=== PATIENT | male | born 1955 | race Caucasian/White ===

== ENCOUNTER 2017-12-08 12:28 | Emergency (ER) | payer OTHER ==
[~2017-12-08] VITALS: Ht 177.8 cm; Wt 141.6 kg
[~2017-12-08 12:28] MED LIST: ALBU8HFA PO; ASPI-611 PO; ATOR10TA PO; FAMO20TA8 PO; HYDR-565 PO; MAGN500C16 PO; OMEG10006 PO; UBID30CA11 PO; VITA-268 PO
[2017-12-08 14:50] LABS: BASOPHILS % (AUTO) 0.4 % (0-1); EOSINOPHILS % (AUTO) 0.3 % (0-6); HEMATOCRIT 43.1 % (42.0-52.0); HEMOGLOBIN 14.6 g/dl (14.0-17.9); LYMPHOCYTES # (AUTO) 3.6 X10'3 (1.1-4.8); LYMPHOCYTES % (AUTO) 31.2 % (21-51); MEAN CORPUSCULAR HEMOGLOBIN 30.4 PG (27.0-31.0); MEAN CORPUSCULAR HGB CONC 33.9 % (33.0-36.5); MEAN CORPUSCULAR VOLUME 89.7 FL (78-98); MEAN PLATELET VOLUME 10.7 FL (7.4-10.4); MONOCYTES # (AUTO) 0.8 X10'3 (0-0.9); MONOCYTES % (AUTO) 6.9 % (2-12); NEUTROPHILS % (AUTO) 61.2 % (42-75); PLATELET COUNT 153 X10'3 (140-440); RED BLOOD COUNT 4.81 X10'6 (4.70-6.10); RED CELL DISTRIBUTION WIDTH 15.4 % (11.5-14.5); WHITE BLOOD COUNT 11.5 X10'3 (4.5-11.0)
[2017-12-08 15:01] LABS: PARTIAL THROMBOPLASTIN TIME 37 SECONDS (22-32); PROTHROMBIN TIME 10.1 SECONDS (9.0-12.0)
[2017-12-08 15:08] LABS: ALANINE AMINOTRANSFERASE 36 U/L (12-78); ALBUMIN 3.4 G/DL (3.4-5.0); ALBUMIN/GLOBULIN RATIO 0.8 (1.1-1.5); ALKALINE PHOSPHATASE 71 IU/L (46-116); ANION GAP 10 (8-16); ASPARTATE AMINO TRANSFERASE 24 U/L (10-37); BILIRUBIN,TOTAL 0.8 MG/DL (0.1-1.0); BLOOD UREA NITROGEN 14 MG/DL (7-18); BUN/CREATININE RATIO 16.1 (5.4-32.0); CALCIUM 8.9 MG/DL (8.5-10.1); CHLORIDE 104 MMOL/L (99-107); CREATININE 0.87 MG/DL (0.60-1.10); GLUCOSE 87 MG/DL (70-104); MAGNESIUM 2.1 MG/DL (1.5-2.4); POTASSIUM 3.9 MMOL/L (3.5-5.1); SODIUM 142 MMOL/L (135-145); TOTAL CARBON DIOXIDE 27.9 MMOL/L (24-32); TOTAL PROTEIN 7.5 G/DL (6.4-8.2); eGFR 88 ML/MIN
[2017-12-08 15:10] LABS: LARGE PLATELETS FEW; PLATELET ESTIMATE NORMAL
[2017-12-08] MEDS ORDERED: predniSONE 20 mg tablet PO ONE (15:20)
[2017-12-08 15:49] LABS: CLARITY,URINE CLEAR (Clear); COLOR,URINE YELLOW (Yellow); GLUCOSE, URINE NEGATIVE (Neg); KETONES,URINE NEGATIVE (Neg); LEUKOCYTE ESTERASE ,URINE NEGATIVE (Neg); NITRITES, URINE NEGATIVE (Neg); OCCULT BLOOD,URINE NEGATIVE (Neg); PH,URINE 6.5 (4.8-8.0); PROTEIN,URINE NEGATIVE (Neg); UROBILINOGEN,URINE 0.2 E.U/dL (0.2-1.0)
[2017-12-08 15:50] LABS: UA COLLECTION TYPE CLN CATCH MIDSTREAM
[2017-12-08 15:59] VITALS: BP 125/89
== END 2017-12-08 16:02 | disposition home or self-care (01) ==
LOC: ER 12:29
DX: J18.9 Pneumonia, unspecified organism (principal); I25.10 Atherosclerotic heart disease of native coronary artery without angina pectoris; J45.909 Unspecified asthma, uncomplicated; I10 Essential (primary) hypertension; E78.00 Pure hypercholesterolemia, unspecified; K21.9 Gastro-esophageal reflux disease without esophagitis; I25.2 Old myocardial infarction; I49.9 Cardiac arrhythmia, unspecified; Z98.61 Coronary angioplasty status; Z98.890 Other specified postprocedural states; Z88.8 Allergy status to other drugs, medicaments and biological substances; Z79.82 Long term (current) use of aspirin; Z79.899 Other long term (current) drug therapy
CPT/HCPCS: 36415; 71046; 80053; 81003; 83605; 83735; 84145; 85025; 85610; 85730; 87040; 93005; 99285; J7512

== ENCOUNTER 2018-06-27 05:24 | Inpatient (IN) | payer MEDICARE, OTHER ==
[2018-06-19 16:01] LABS: BASOPHILS % (AUTO) 0.4 % (0-1); EOSINOPHILS # (AUTO) 0.2 X10'3 (0-0.9); EOSINOPHILS % (AUTO) 2.8 % (0-6); LYMPHOCYTES # (AUTO) 2.9 X10'3 (1.1-4.8); LYMPHOCYTES % (AUTO) 35.3 % (21-51); MEAN CORPUSCULAR HEMOGLOBIN 30.4 PG (27.0-31.0); MEAN CORPUSCULAR HGB CONC 32.9 % (33.0-36.5); MEAN CORPUSCULAR VOLUME 92.5 FL (78-98); MEAN PLATELET VOLUME 11.7 FL (7.4-10.4); MONOCYTES # (AUTO) 0.5 X10'3 (0-0.9); MONOCYTES % (AUTO) 6.6 % (2-12); NEUTROPHILS # (AUTO) 4.5 X10'3 (1.8-7.7); NEUTROPHILS % (AUTO) 54.9 % (42-75); PRE OP HEMATOCRIT 47.5 % (42.0-52.0); PRE OP HEMOGLOBIN 15.6 g/dL (14.0-17.9); PRE OP PLATELET COUNT 154 X10'3 (140-440); RED BLOOD COUNT 5.14 X10'6 (4.70-6.10); RED CELL DISTRIBUTION WIDTH 14.4 % (11.5-14.5)
[2018-06-19 16:08] LABS: ALBUMIN 3.5 G/DL (3.4-5.0); ALBUMIN/GLOBULIN RATIO 0.9 (1.1-1.5); ALKALINE PHOSPHATASE 77 IU/L (46-116); BLOOD UREA NITROGEN 14 MG/DL (7-18); BUN/CREATININE RATIO 17.3 (5.4-32.0); CHLORIDE 106 MMOL/L (99-107); CREATININE 0.81 MG/DL (0.60-1.10); PRE OP ALT 30 U/L (30-65); PRE OP ANION GAP 7 (8-16); PRE OP AST 18 U/L (10-37); PRE OP BILIRUB, TOTAL 1.2 MG/DL (0.0-1.0); PRE OP GLUCOSE 88 MG/DL (70-104); PRE OP POTASSIUM 4.2 MMOL/L (3.4-5.1); PRE OP SODIUM 142 MMOL/L (135-145); TOTAL CARBON DIOXIDE 28.9 MMOL/L (24-32); TOTAL PROTEIN 7.2 G/DL (6.4-8.2); eGFR > 90 ML/MIN
[2018-06-19 16:15] LABS: PRE OP PROTIME 10.2 SECONDS (9.0-12.0)
[2018-06-19 16:17] LABS: CLARITY,URINE CLEAR (Clear); COLOR,URINE YELLOW (Yellow); GLUCOSE, URINE NEGATIVE (Neg); KETONES,URINE NEGATIVE (Neg); LEUKOCYTE ESTERASE ,URINE NEGATIVE (Neg); NITRITES, URINE NEGATIVE (Neg); OCCULT BLOOD,URINE NEGATIVE (Neg); PROTEIN,URINE NEGATIVE (Neg); UROBILINOGEN,URINE 0.2 E.U/dL (0.2-1.0)
[2018-06-19 16:26] LABS: UA COLLECTION TYPE VOIDED
[2018-06-27] VITALS (18 sets, daily range): BP systolic 98–152; BP diastolic 42–95
[~2018-06-27] VITALS: Ht 179.1 cm; Wt 138.1 kg
[~2018-06-27 05:24] MED LIST changes: -ASPI-611 PO; -FAMO20TA8 PO; -HYDR-565 PO; +ringers solution, lacted 1,000 ML IV SCH
[2018-06-27] MEDS ORDERED: metoclopramide 5 mg/ml inj IV ONE (05:30)
[2018-06-27] MEDS ORDERED: gabapentin 300mg capsule PO ONE (05:30)
[2018-06-27] MEDS ORDERED: albuterol 2.5 MG/3 ML nebule NEB ONE (05:30)
[2018-06-27] MEDS ORDERED: ceFAZolin inj. 3,000 MG in normal saline 100ml IV soln 100 ML IV ONE (05:30)
[2018-06-27] MEDS ORDERED: famotidine 20mg tablet PO ONE (05:30)
[2018-06-27] MEDS ORDERED: oxyCODONE SR 10mg (sust. release) tab -2 tabs (20mg) PO ONE (05:30)
[2018-06-27] MEDS ORDERED: vancomycin inj 1,500 MG in normal saline 300ml IV soln IV ONE (05:30)
[2018-06-27] MEDS ORDERED: tranexamic acid inj. 1,000 MG in normal saline 100ml IV soln 90 ML IV ONE (05:30)
[2018-06-27] MEDS ORDERED: acetaminophen 325mg tablet PO ONE (05:30)
[2018-06-27] MEDS ORDERED: LIDOcaine 1% (10mg/ml) 2ml vial ONE (05:43)
[2018-06-27] MEDS ORDERED: vancomycin 1,000mg inj ONE (06:26)
[2018-06-27] MEDS ORDERED: ketorolac trometh. 30mg/ml inj. ONE (06:55)
[2018-06-27] MEDS ORDERED: tetracaine 1% (10mg/ml) pres. free inj. ONE (07:19)
[2018-06-27] MEDS ORDERED: midazolam 2 mg/2 ml injection ONE ×2 (07:21→07:22)
[2018-06-27] MEDS ORDERED: fentaNYL/PF 50MCG/1 ML 2ML syringe ONE (07:21)
[2018-06-27] MEDS ORDERED: propofol inj 20 ML IV ONE (07:22)
[2018-06-27] MEDS ORDERED: sevoflurane 250ml liquid IH ONE (07:23)
[2018-06-27] MEDS ORDERED: BUPIVAcaine/dex-water/PF 7.5 mg/ml 2ml ampul ONE (07:26)
[2018-06-27] MEDS ORDERED: ROPIVAcaine inj 200 MG, epiNEPHrine inj 0.6 MG, morphine 10mg/ml inj. 5 MG in normal sa... IU ONE (07:30)
[2018-06-27] MEDS ORDERED: Thrombin (Bovine) 5,000 unit vial TP ONE (08:49)
[2018-06-27] MEDS ORDERED: ringers solution, lacted 1,000 ML IV SCH (08:57)
[2018-06-27] MEDS ORDERED: morphine 4 MG/ML inj SYRINge IV PRN ×2 (09:00)
[2018-06-27] MEDS ORDERED: meperidine/PF 25mg/ml syringe IV PRN ×3 (09:00)
[2018-06-27] MEDS ORDERED: proCHLORperazine 10 MG/2 ml inj IV PRN (09:00)
[2018-06-27] MEDS ORDERED: ondansetron/PF 4mg/2ml inj IV PRN (09:00)
[2018-06-27] MEDS ORDERED: diphenhydrAMINE 25mg capsule PO PRN ×2 (10:35)
[2018-06-27] MEDS ORDERED: acetaminophen 325mg tablet PO PRN (10:35)
[2018-06-27] MEDS ORDERED: HYDROmorphone 1 mg/ml syringe IV PRN ×2 (10:35)
[2018-06-27] MEDS ORDERED: oxyCODONE IR 5mg (immed. release) tablet PO PRN (10:35)
[2018-06-27] MEDS ORDERED: bisacodyl 10mg suppository rectal RC PRN (10:35)
[2018-06-27] MEDS ORDERED: magnesium hydroxide 30ml (MOM) UD suspension PO PRN (10:35)
[2018-06-27] MEDS ORDERED: ePHEDrine 50MG/ML INJ. ONE (10:36)
[2018-06-27] MEDS ORDERED: albuterol 2.5 MG/3 ML nebule NEB PRN (11:40)
[2018-06-27] MEDS ORDERED: tranexamic acid inj. 1,000 MG in normal saline 100ml IV soln 100 ML IV ONE (13:35)
[2018-06-27] MEDS: oxyCODONE IR 5mg (immed. release) tablet PO PRN ×2 (14:36→23:56)
[2018-06-27] MEDS: gabapentin 300mg capsule PO SCH ×2 (15:50→20:29)
[2018-06-27] MEDS: acetaminophen 325mg tablet PO SCH ×2 (15:50→20:29)
[2018-06-27] MEDS: ceFAZolin 1GM/D5W- ADD-VANTAGE 50 ML IV SCH (16:16)
[2018-06-27] MEDS: potassium cl 20mEq in 1/2 NS 1,000 ML IV SCH ×3 (16:17→19:23)
[2018-06-27] MEDS: ondansetron/PF 4mg/2ml inj IV PRN (18:25)
[2018-06-27] MEDS ORDERED: vancomycin/NS 1 GM ADD-VANTAGE 250 ML IV SCH (20:00)
[2018-06-27] MEDS: sennosides 8.6mg tablet PO SCH (20:30)
[2018-06-28] VITALS (7 sets, daily range): BP systolic 100–133; BP diastolic 53–77
[2018-06-28] MEDS: ceFAZolin 1GM/D5W- ADD-VANTAGE 50 ML IV SCH (00:20)
[2018-06-28] MEDS: acetaminophen 325mg tablet PO SCH ×4 (02:00→19:31)
[2018-06-28] MEDS: potassium cl 20mEq in 1/2 NS 1,000 ML IV SCH ×3 (05:04→20:13)
[2018-06-28] MEDS: oxyCODONE IR 5mg (immed. release) tablet PO PRN ×4 (05:10→20:50)
[2018-06-28] MEDS ORDERED: benzocaine/menthol oral lozeng 1 EACH BOX MM PRN (05:50)
[2018-06-28 06:26] LABS: BASOPHILS % (AUTO) 0.4 % (0-1); EOSINOPHILS # (AUTO) 0.1 X10'3 (0-0.9); EOSINOPHILS % (AUTO) 1.6 % (0-6); HEMATOCRIT 35.6 % (42.0-52.0); LYMPHOCYTES # (AUTO) 2.2 X10'3 (1.1-4.8); LYMPHOCYTES % (AUTO) 27.7 % (21-51); MEAN CORPUSCULAR HEMOGLOBIN 30.8 PG (27.0-31.0); MEAN CORPUSCULAR HGB CONC 33.6 % (33.0-36.5); MEAN CORPUSCULAR VOLUME 91.7 FL (78-98); MONOCYTES # (AUTO) 1.1 X10'3 (0-0.9); NEUTROPHILS # (AUTO) 4.5 X10'3 (1.8-7.7); NEUTROPHILS % (AUTO) 56.3 % (42-75); PLATELET COUNT 118 X10'3 (140-440); RED BLOOD COUNT 3.89 X10'6 (4.70-6.10); RED CELL DISTRIBUTION WIDTH 14.2 % (11.5-14.5); WHITE BLOOD COUNT 8.1 X10'3 (4.5-11.0)
[2018-06-28 06:31] LABS: ANION GAP 8 (8-16); CHLORIDE 103 MMOL/L (99-107); POTASSIUM 4.1 MMOL/L (3.5-5.1); SODIUM 138 MMOL/L (135-145); TOTAL CARBON DIOXIDE 27.2 MMOL/L (24-32)
[2018-06-28] MEDS ORDERED: non-formulary drug (Ubidecarenone (Coq-10) 30 MG) PO SCH (08:00)
[2018-06-28] MEDS: atorvastatin 10mg tablet PO SCH (08:14)
[2018-06-28] MEDS: enoxaparin 40mg/0.4ml syringe SQ SCH (08:14)
[2018-06-28] MEDS: magnesium oxide 400mg tablet PO SCH (08:14)
[2018-06-28] MEDS: gabapentin 300mg capsule PO SCH ×3 (08:15→20:13)
[2018-06-28] MEDS: vitamin B comp w/Vit. C tab 1 TAB TABLET PO SCH (08:16)
[2018-06-28 10:17] LABS: LARGE PLATELETS FEW; PLATELET ESTIMATE DECREASED
[2018-06-28] MEDS: celeCOXIB 100mg capsule PO SCH (19:31)
[2018-06-28] MEDS: sennosides 8.6mg tablet PO SCH (21:00)
[2018-06-29] MEDS: acetaminophen 325mg tablet PO SCH ×2 (01:55→07:14)
[2018-06-29 06:00] VITALS: BP 117/66
[2018-06-29 07:01] LABS: BASOPHILS % (AUTO) 0.3 % (0-1); EOSINOPHILS # (AUTO) 0.2 X10'3 (0-0.9); HEMATOCRIT 35.1 % (42.0-52.0); HEMOGLOBIN 11.8 g/dl (14.0-17.9); LYMPHOCYTES # (AUTO) 1.8 X10'3 (1.1-4.8); LYMPHOCYTES % (AUTO) 15.9 % (21-51); MEAN CORPUSCULAR HGB CONC 33.7 % (33.0-36.5); MEAN CORPUSCULAR VOLUME 91.9 FL (78-98); MONOCYTES # (AUTO) 1.1 X10'3 (0-0.9); MONOCYTES % (AUTO) 9.4 % (2-12); NEUTROPHILS # (AUTO) 8.3 X10'3 (1.8-7.7); NEUTROPHILS % (AUTO) 72.4 % (42-75); PLATELET COUNT 103 X10'3 (140-440); RED BLOOD COUNT 3.82 X10'6 (4.70-6.10); RED CELL DISTRIBUTION WIDTH 13.8 % (11.5-14.5); WHITE BLOOD COUNT 11.4 X10'3 (4.5-11.0)
[2018-06-29] MEDS: gabapentin 300mg capsule PO SCH ×3 (07:08→20:42)
[2018-06-29] MEDS: atorvastatin 10mg tablet PO SCH (07:08)
[2018-06-29] MEDS: celeCOXIB 100mg capsule PO SCH ×2 (07:08→19:46)
[2018-06-29] MEDS: vitamin B comp w/Vit. C tab 1 TAB TABLET PO SCH (07:08)
[2018-06-29] MEDS: enoxaparin 40mg/0.4ml syringe SQ SCH (07:08)
[2018-06-29] MEDS: magnesium oxide 400mg tablet PO SCH (07:08)
[2018-06-29 10:00] VITALS: BP 115/51
[2018-06-29] MEDS ORDERED: acetaminophen 325mg tablet PO PRN (10:35)
[2018-06-29] MEDS ORDERED: acetaminophen w/codeine (30MG) #3 tablet PO PRN (16:25)
[2018-06-29 17:00] VITALS: BP 112/59
[2018-06-29] MEDS: acetaminophen w/codeine (30MG) #3 tablet PO PRN (18:37)
[2018-06-29] MEDS: sennosides 8.6mg tablet PO SCH (21:00)
[2018-06-29 22:00] VITALS: BP 119/55
[2018-06-30] MEDS: ondansetron/PF 4mg/2ml inj IV PRN (02:42)
[2018-06-30 03:51] LABS: BASOPHILS % (AUTO) 0.4 % (0-1); EOSINOPHILS # (AUTO) 0.3 X10'3 (0-0.9); HEMATOCRIT 33.4 % (42.0-52.0); HEMOGLOBIN 11.2 g/dl (14.0-17.9); LYMPHOCYTES # (AUTO) 3.1 X10'3 (1.1-4.8); LYMPHOCYTES % (AUTO) 27.9 % (21-51); MEAN CORPUSCULAR HEMOGLOBIN 31.1 PG (27.0-31.0); MEAN CORPUSCULAR HGB CONC 33.5 % (33.0-36.5); MEAN CORPUSCULAR VOLUME 92.9 FL (78-98); MEAN PLATELET VOLUME 10.7 FL (7.4-10.4); MONOCYTES # (AUTO) 1.1 X10'3 (0-0.9); MONOCYTES % (AUTO) 9.6 % (2-12); NEUTROPHILS # (AUTO) 6.6 X10'3 (1.8-7.7); NEUTROPHILS % (AUTO) 59.1 % (42-75); PLATELET COUNT 115 X10'3 (140-440); RED CELL DISTRIBUTION WIDTH 13.9 % (11.5-14.5); WHITE BLOOD COUNT 11.1 X10'3 (4.5-11.0)
[2018-06-30 06:00] VITALS: BP 110/64
[2018-06-30 06:48] LABS: LARGE PLATELETS FEW; PLATELET ESTIMATE DECREASED
[2018-06-30] MEDS: celeCOXIB 100mg capsule PO SCH (08:00)
[2018-06-30] MEDS: gabapentin 300mg capsule PO SCH (08:17)
[2018-06-30] MEDS: magnesium oxide 400mg tablet PO SCH (08:17)
[2018-06-30] MEDS: vitamin B comp w/Vit. C tab 1 TAB TABLET PO SCH (08:17)
[2018-06-30] MEDS: atorvastatin 10mg tablet PO SCH (08:17)
[2018-06-30] MEDS: acetaminophen w/codeine (30MG) #3 tablet PO PRN (08:17)
[2018-06-30] MEDS: enoxaparin 40mg/0.4ml syringe SQ SCH (08:18)
[2018-06-30 10:00] VITALS: BP 112/53
== END 2018-06-30 11:00 | DRG 470 ==
LOC: PAS IN 05:24 → EDSTATUS 08:30 → ORTHO 4S 11:35
PROVIDERS: ADMIT Orthopaedic Surgery; ATTEND Orthopaedic Surgery
PROC: 0SRB06A Replacement of Left Hip Joint with Oxidized Zirconium on Polyethylene Synthetic Substitute, Uncemented, Open Approach (ICD-10-PCS; principal; 2018-06-27 07:23)
PROC: 5A09357 Assistance with Respiratory Ventilation, Less than 24 Consecutive Hours, Continuous Positive Airway Pressure (ICD-10-PCS; 2018-06-28)
DX: M16.12 Unilateral primary osteoarthritis, left hip (principal); D62 Acute posthemorrhagic anemia; Z68.41 Body mass index [BMI] 40.0-44.9, adult; E78.5 Hyperlipidemia, unspecified; E66.01 Morbid (severe) obesity due to excess calories; Z60.2 Problems related to living alone; G47.30 Sleep apnea, unspecified; I25.10 Atherosclerotic heart disease of native coronary artery without angina pectoris; J45.909 Unspecified asthma, uncomplicated; K21.9 Gastro-esophageal reflux disease without esophagitis; Z95.5 Presence of coronary angioplasty implant and graft; Z79.899 Other long term (current) drug therapy
CPT/HCPCS: 36415; 71046; 72170; 80051; 80053; 81003; 85025; 85610; 85730; 86885; 86900; 86901; 87070; 94640; 94760; 97110; 97116; 97161; 97530; A7000; C1758; C1776; G0378; J0171; J0690; J1650; J1885; J2250; J2270; J2405; J2704; J2765; J2795; J3010; J3370; J3490; J7030; J7120

== ENCOUNTER 2018-07-09 20:57 | Emergency (ER) | payer MEDICARE, OTHER ==
[~2018-07-09] VITALS: Ht 177.8 cm; Wt 145.4 kg
[~2018-07-09 20:57] MED LIST changes: -ringers solution, lacted 1,000 ML IV SCH
[2018-07-09 21:03] VITALS: BP 147/68
[2018-07-09] MEDS ORDERED: HYDROcodone/acetaminophen 5mg/325mg tablet PO ONE (22:25)
== END 2018-07-09 23:07 | disposition home or self-care (01) ==
LOC: ER 20:58
DX: G89.18 Other acute postprocedural pain (principal); M25.552 Pain in left hip; I25.10 Atherosclerotic heart disease of native coronary artery without angina pectoris; E78.00 Pure hypercholesterolemia, unspecified; I10 Essential (primary) hypertension; I25.2 Old myocardial infarction; J45.909 Unspecified asthma, uncomplicated; K21.9 Gastro-esophageal reflux disease without esophagitis; M19.90 Unspecified osteoarthritis, unspecified site; Z98.61 Coronary angioplasty status; Z98.890 Other specified postprocedural states; Z88.1 Allergy status to other antibiotic agents; Z88.8 Allergy status to other drugs, medicaments and biological substances; Z79.899 Other long term (current) drug therapy
CPT/HCPCS: 73502; 99284

== ENCOUNTER 2019-08-01 09:47 | Day surgery (SDC) | payer MEDICARE, OTHER ==
[~2019-08-01] VITALS: Ht 177.8 cm; Wt 136.4 kg
[2019-08-01 10:00] VITALS: BP 153/76
[2019-08-01] MEDS ORDERED: ASPI-611 PO (10:20)
[2019-08-01] MEDS ORDERED: fentaNYL/PF 50MCG/1 ML 2ML syringe ONE (10:24)
[2019-08-01] MEDS ORDERED: MIDAZolam 5mg/5ml vial ONE (10:24)
[2019-08-01 11:09] VITALS: BP 126/62
[2019-08-01 11:19] VITALS: BP 131/61
[2019-08-01 11:29] VITALS: BP 145/68
[2019-08-01 11:39] VITALS: BP 121/64
== END 2019-08-01 12:00 | disposition home or self-care (01) ==
LOC: GI LAB 09:47
PROVIDERS: ATTEND Internal Medicine Gastroenterology
DX: Z12.11 Encounter for screening for malignant neoplasm of colon (principal); K57.30 Diverticulosis of large intestine without perforation or abscess without bleeding; Z86.010 Personal history of colon polyps; K64.8 Other hemorrhoids
CPT/HCPCS: G0105; G0500; J2250; J3010; J7040; 45378; 99152; A4620

== ENCOUNTER 2019-12-03 04:34 | Emergency (ER) | payer MEDICARE, OTHER ==
[~2019-12-03] VITALS: Ht 177.8 cm; Wt 61.0 kg
[~2019-12-03 04:34] MED LIST changes: +ASPI-611 PO
[2019-12-03] MEDS ORDERED: ACET-3067 PO (05:06)
[2019-12-03] MEDS ORDERED: CYCL-1 PO (05:06)
[2019-12-03 05:21] VITALS: BP 180/92
== END 2019-12-03 05:24 | disposition home or self-care (01) ==
LOC: ER 04:34
DX: M54.5 Low back pain (principal); M54.2 Cervicalgia; I25.10 Atherosclerotic heart disease of native coronary artery without angina pectoris; E78.00 Pure hypercholesterolemia, unspecified; I10 Essential (primary) hypertension; I25.2 Old myocardial infarction; J45.909 Unspecified asthma, uncomplicated; G47.30 Sleep apnea, unspecified; M19.90 Unspecified osteoarthritis, unspecified site; G89.29 Other chronic pain; Z98.61 Coronary angioplasty status; Z98.890 Other specified postprocedural states; Z88.8 Allergy status to other drugs, medicaments and biological substances; Z79.82 Long term (current) use of aspirin; Z79.899 Other long term (current) drug therapy
CPT/HCPCS: 99281; 99283

== ENCOUNTER 2020-01-10 05:13 | Emergency (ER) | payer MEDICARE, OTHER ==
[~2020-01-10] VITALS: Ht 177.8 cm; Wt 150.0 kg
[~2020-01-10 05:13] MED LIST changes: +CYCL-1 PO
[2020-01-10] MEDS ORDERED: triamcinolone acetonide 40mg/ml inj IM ONE (05:35)
[2020-01-10 05:46] VITALS: BP 162/95
== END 2020-01-10 05:47 | disposition home or self-care (01) ==
LOC: ER 05:13
DX: L50.9 Urticaria, unspecified (principal); M19.90 Unspecified osteoarthritis, unspecified site; I25.10 Atherosclerotic heart disease of native coronary artery without angina pectoris; E78.00 Pure hypercholesterolemia, unspecified; I10 Essential (primary) hypertension; I25.2 Old myocardial infarction; J45.909 Unspecified asthma, uncomplicated; G47.30 Sleep apnea, unspecified; K21.9 Gastro-esophageal reflux disease without esophagitis; G89.29 Other chronic pain; Z98.61 Coronary angioplasty status; Z98.890 Other specified postprocedural states; Z88.8 Allergy status to other drugs, medicaments and biological substances; Z79.82 Long term (current) use of aspirin; Z79.899 Other long term (current) drug therapy
CPT/HCPCS: 96372; 99283; J3301

== ENCOUNTER 2020-04-29 08:14 | Outpatient (CLI) | payer MEDICARE, OTHER ==
[~2020-04-29] VITALS: Ht 177.8 cm; Wt 136.1 kg
[2020-04-29 08:41] LABS: ABG BASE EXCESS 0.7 mmol/L (-2.0-2.0); ABG HCO3 25.8 mmol/L (22.0-26.0); ABG OXYGEN SATURATION 96.7 % (94-97); ABG PO2 (T) 85.1 mmHg (75.0-100.0); ALLEN'S TEST POSITIVE; FCOHb 0.3 % (0.0-3.9); FMetHb 0.3 % (0.0-1.5); FO2Hb 96.1 % (94-97); TOTAL HEMOGLOBIN 15.8 G/dl (14.0-18.0)
[2020-04-29] MEDS ORDERED: albuterol 2.5 MG/3 ML nebule NEB ONE (09:05)
== END 2020-04-29 23:59 | disposition home or self-care (01) ==
LOC: RT 08:14
PROVIDERS: ATTEND Internal Medicine Pulmonary Disease
DX: J45.998 Other asthma (principal); R06.02 Shortness of breath
CPT/HCPCS: 36600; 82803; 85018; 94060; 94727; 94729; 94760

== ENCOUNTER 2020-06-08 17:24 | Emergency (ER) | payer MEDICARE, OTHER ==
[~2020-06-08] VITALS: Ht 177.8 cm; Wt 150.0 kg
[2020-06-08 17:35] VITALS: BP 189/80
--- NOTE | 2020-06-08 20:28 | NUR ---
sanchez in assessing patient with scribe
--- NOTE | 2020-06-08 20:35 | NUR ---
patient states having chronic neck pain that is followed by a pcp, appropriate ella level would be 4 due to resources to be used
[2020-06-08] MEDS ORDERED: acetaminophen w/codeine (30MG) #3 tablet PO ONE (20:50)
[2020-06-08] MEDS ORDERED: gabapentin 300mg capsule PO ONE (20:50)
[2020-06-08] MEDS ORDERED: GABA300C PO (20:53)
== END 2020-06-08 21:18 | disposition home or self-care (01) ==
LOC: ER 17:25
DX: S16.1XXD Strain of muscle, fascia and tendon at neck level, subsequent encounter (principal); H93.13 Tinnitus, bilateral; I10 Essential (primary) hypertension; E78.00 Pure hypercholesterolemia, unspecified; J45.909 Unspecified asthma, uncomplicated; K21.9 Gastro-esophageal reflux disease without esophagitis; G89.29 Other chronic pain; M54.9 Dorsalgia, unspecified; I25.10 Atherosclerotic heart disease of native coronary artery without angina pectoris; I21.9 Acute myocardial infarction, unspecified; Z88.1 Allergy status to other antibiotic agents; Z79.899 Other long term (current) drug therapy; Z79.82 Long term (current) use of aspirin; X58.XXXD Exposure to other specified factors, subsequent encounter
CPT/HCPCS: 99284

== ENCOUNTER 2020-06-24 13:40 | Outpatient (CLI) | payer MEDICARE, OTHER ==
[~2020-06-24 13:40] MED LIST changes: +GABA300C PO
[2020-06-24 15:15] LABS: BASOPHILS # (AUTO) 0.1 X10'3 (0-0.2); BASOPHILS % (AUTO) 0.6 % (0-1); EOSINOPHILS # (AUTO) 0.2 X10'3 (0-0.9); EOSINOPHILS % (AUTO) 2.6 % (0-6); LYMPHOCYTES # (AUTO) 3.2 X10'3 (1.1-4.8); LYMPHOCYTES % (AUTO) 38.5 % (21-51); MEAN CORPUSCULAR HEMOGLOBIN 31.6 PG (27.0-31.0); MEAN CORPUSCULAR HGB CONC 33.4 g/dL (33.0-36.5); MEAN CORPUSCULAR VOLUME 94.5 FL (78-98); MEAN PLATELET VOLUME 10.4 FL (7.4-10.4); MONOCYTES # (AUTO) 0.6 X10'3 (0-0.9); MONOCYTES % (AUTO) 7.4 % (2-12); NEUTROPHILS # (AUTO) 4.2 X10'3 (1.8-7.7); NEUTROPHILS % (AUTO) 50.9 % (42-75); PRE OP HEMATOCRIT 47.4 % (42.0-52.0); PRE OP HEMOGLOBIN 15.8 g/dL (14.0-17.9); PRE OP PLATELET COUNT 146 X10'3 (140-440); RED BLOOD COUNT 5.02 X10'6 (4.70-6.10)
[2020-06-24 15:33] LABS: ALBUMIN 3.7 G/DL (3.4-5.0); ALKALINE PHOSPHATASE 75 IU/L (46-116); BLOOD UREA NITROGEN 12 MG/DL (7-18); BUN/CREATININE RATIO 14.3 (5.4-32.0); CALCIUM 9.2 MG/DL (8.5-10.1); CHLORIDE 108 MMOL/L (99-107); CREATININE 0.84 MG/DL (0.60-1.10); PRE OP ALT 26 U/L (30-65); PRE OP ANION GAP 6 (8-16); PRE OP AST 17 U/L (10-37); PRE OP BILIRUB, TOTAL 1.2 MG/DL (0.0-1.0); PRE OP GLUCOSE 96 MG/DL (70-104); PRE OP POTASSIUM 4.4 MMOL/L (3.4-5.1); PRE OP SODIUM 143 MMOL/L (135-145); TOTAL CARBON DIOXIDE 29.1 MMOL/L (24-32); TOTAL PROTEIN 7.5 G/DL (6.4-8.2); eGFR > 90 ML/MIN
[2020-06-24] MEDS ORDERED: LEVO50TA8 PO (15:56)
[2020-06-24] MEDS ORDERED: BIMA2.5D LEFTEYE (15:56)
[2020-06-24] MEDS ORDERED: MULT-1085 PO (15:56)
[2020-06-24] MEDS ORDERED: OMEP40CA13 PO (15:56)
== END 2020-06-24 23:56 | disposition home or self-care (01) ==
LOC: PRE-OP 13:40 → EDSTATUS 07-01 07:30
PROVIDERS: ATTEND Orthopaedic Surgery
DX: Z01.812 Encounter for preprocedural laboratory examination (principal); Z20.828 Contact with and (suspected) exposure to other viral communicable diseases; Z79.899 Other long term (current) drug therapy
CPT/HCPCS: 36415; 80053; 84443; 85025; 87081; 87635; 93005

== ENCOUNTER 2020-10-21 10:41 | Day surgery (SDC) | payer MEDICARE, OTHER ==
[2020-10-14 14:36] LABS: BASOPHILS # (AUTO) 0.1 X10'3 (0-0.2); BASOPHILS % (AUTO) 0.7 % (0-1); EOSINOPHILS # (AUTO) 0.2 X10'3 (0-0.9); LYMPHOCYTES # (AUTO) 2.9 X10'3 (1.1-4.8); LYMPHOCYTES % (AUTO) 38.8 % (21-51); MEAN CORPUSCULAR HEMOGLOBIN 31.1 PG (27.0-31.0); MEAN CORPUSCULAR HGB CONC 33.1 g/dL (33.0-36.5); MEAN CORPUSCULAR VOLUME 93.7 FL (78-98); MEAN PLATELET VOLUME 10.9 FL (7.4-10.4); MONOCYTES # (AUTO) 0.6 X10'3 (0-0.9); MONOCYTES % (AUTO) 7.5 % (2-12); NEUTROPHILS # (AUTO) 3.7 X10'3 (1.8-7.7); PRE OP HEMATOCRIT 45.7 % (42.0-52.0); PRE OP HEMOGLOBIN 15.1 g/dL (14.0-17.9); PRE OP PLATELET COUNT 144 X10'3 (140-440); RED BLOOD COUNT 4.88 X10'6 (4.70-6.10); RED CELL DISTRIBUTION WIDTH 13.8 % (11.5-14.5)
[2020-10-14 14:41] LABS: ALBUMIN 3.4 G/DL (3.4-5.0); ALBUMIN/GLOBULIN RATIO 0.9 (1.1-1.5); ALKALINE PHOSPHATASE 77 IU/L (46-116); BLOOD UREA NITROGEN 15 MG/DL (7-18); CALCIUM 8.8 MG/DL (8.5-10.1); CHLORIDE 106 MMOL/L (99-107); CREATININE 0.75 MG/DL (0.60-1.10); PRE OP ALT 26 U/L (30-65); PRE OP ANION GAP 7 (8-16); PRE OP AST 15 U/L (10-37); PRE OP BILIRUB, TOTAL 1.1 MG/DL (0.0-1.0); PRE OP GLUCOSE 96 MG/DL (70-104); PRE OP POTASSIUM 4.4 MMOL/L (3.4-5.1); PRE OP SODIUM 142 MMOL/L (135-145); TOTAL CARBON DIOXIDE 29.4 MMOL/L (24-32); eGFR > 90 ML/MIN
[2020-10-21] VITALS (11 sets, daily range): BP systolic 121–152; BP diastolic 82–102
[~2020-10-21] VITALS: Ht 177.8 cm; Wt 145.2 kg
[~2020-10-21 10:41] MED LIST changes: +CHRO1TAB8 PO; -CYCL-1 PO; -GABA300C PO; +GARLIC; +LEVO50TA8 PO; +MULT-1085 PO; -OMEG10006 PO; +TUMERIC; -VITA-268 PO; +albuterol 2.5 MG/3 ML nebule NEB ONE; +ceFAZolin inj. 3,000 MG in normal saline 100ml IV soln 100 ML IV ONE; +ceFAZolin/D5W- 1GM premix 50 ML IV ONE; +cefazolin/dext.iso 2gm/100ml 100 ML IV ONE; +famotidine 20mg tablet PO ONE; +ringers solution, lacted 1,000 ML IV SCH
[2020-10-21] MEDS ORDERED: fentaNYL/PF 50MCG/1 ML 2ML syringe ONE (15:03)
[2020-10-21] MEDS ORDERED: midazolam 1 mg/ML 2ml injection ONE ×2 (15:04→15:22)
[2020-10-21] MEDS ORDERED: BUPIVAcaine/PF 2.5 mg/ml (0.25%) 30ml vial ONE ×2 (15:37→15:40)
[2020-10-21] MEDS ORDERED: BUPIVAcaine 0.25% w/Epi /PF 30ml vial IJ ONE (15:44)
--- NOTE | 2020-10-21 16:47 | NUR ---
Received from OR via [facility], accompanied by Anesthesiologist DR SHAHID and report given by Anesthesiologist. PT AWAKE, DENIES PAIN, LEFT HAND/FOREARM W/GIL WRAP COVERING INCISION/DRSG CDI. FINGERS PWD, PNEUMATIC PRESS HAND 1-2 SECONDS. Addendum: 10/21/20 at 1706 by Brenda Oliva RN Amended: Links added.
[2020-10-21] MEDS ORDERED: morphine 4 MG/ML inj SYRINge IV PRN (17:35)
[2020-10-21] MEDS ORDERED: meperidine/PF 25mg/ml syringe IV PRN ×3 (17:35)
[2020-10-21] MEDS ORDERED: morphine 2 MG/ML inj. syringe IV PRN (17:35)
[2020-10-21] MEDS ORDERED: ringers solution, lacted 1,000 ML IV SCH (17:35)
[2020-10-21] MEDS ORDERED: proCHLORperazine 10 MG/2 ml inj IV PRN (17:35)
[2020-10-21] MEDS ORDERED: ondansetron/PF 4mg/2ml inj IV PRN (17:35)
--- NOTE | 2020-10-21 17:37 | NUR ---
PT UP AND ABLE TO AMBULATE SAFELY, D/C INSTRUCTIONS GIVEN AND GONE OVER W/PT WHO VERBALIZED UNDERSTANDING. PT D/CD TO HOME VIA W/C TO PRIVATE VEHICLE W/O INCIDENT. Addendum: 10/21/20 at 1757 by Brenda Oliva RN Amended: Links added.
== END 2020-10-21 17:37 | disposition home or self-care (01) ==
LOC: PAS 10:41
PROVIDERS: ATTEND Orthopaedic Surgery
DX: M65.4 Radial styloid tenosynovitis [de Quervain] (principal); J45.909 Unspecified asthma, uncomplicated; G47.30 Sleep apnea, unspecified; E03.9 Hypothyroidism, unspecified; K21.9 Gastro-esophageal reflux disease without esophagitis; M19.90 Unspecified osteoarthritis, unspecified site; F32.9 Major depressive disorder, single episode, unspecified; I73.9 Peripheral vascular disease, unspecified; Z88.8 Allergy status to other drugs, medicaments and biological substances; Z98.890 Other specified postprocedural states; Z88.1 Allergy status to other antibiotic agents; Z95.5 Presence of coronary angioplasty implant and graft; Z79.899 Other long term (current) drug therapy
CPT/HCPCS: 25000; 80053; 85025; J0690; J2250; J3010; J3490; A4215; A4615; A6449; A7000; J7120

== ENCOUNTER → 2021-01-15 | Outpatient (CLI) | payer MEDICARE, OTHER ==
[~2021-01-15] MED LIST changes: -albuterol 2.5 MG/3 ML nebule NEB ONE; -ceFAZolin inj. 3,000 MG in normal saline 100ml IV soln 100 ML IV ONE; -ceFAZolin/D5W- 1GM premix 50 ML IV ONE; -cefazolin/dext.iso 2gm/100ml 100 ML IV ONE; -famotidine 20mg tablet PO ONE; +iohexol 300mg/ml 100ml inj. ONE; -ringers solution, lacted 1,000 ML IV SCH
== END | disposition home or self-care (01) ==
LOC: 64 CT 10:16
PROVIDERS: ATTEND Family Medicine
DX: N28.1 Cyst of kidney, acquired (principal)
CPT/HCPCS: 74177; Q9967

== ENCOUNTER 2021-02-06 03:47 | Emergency (ER) | payer MEDICARE, OTHER ==
[~2021-02-06] VITALS: Ht 177.8 cm; Wt 143.2 kg
[~2021-02-06 03:47] MED LIST changes: -iohexol 300mg/ml 100ml inj. ONE
[2021-02-06 04:56] LABS: ALANINE AMINOTRANSFERASE 22 U/L (12-78); ALBUMIN 3.5 G/DL (3.4-5.0); ALKALINE PHOSPHATASE 59 IU/L (46-116); ANION GAP 6 (8-16); ASPARTATE AMINO TRANSFERASE 14 U/L (10-37); BLOOD UREA NITROGEN 12 MG/DL (7-18); BUN/CREATININE RATIO 12.4 (5.4-32.0); CALCIUM 8.4 MG/DL (8.5-10.1); CHLORIDE 106 MMOL/L (99-107); CREATININE 0.97 MG/DL (0.60-1.10); GLUCOSE 99 MG/DL (70-104); LIPASE 95 U/L (73-393); SODIUM 142 MMOL/L (135-145); TOTAL CARBON DIOXIDE 30.4 MMOL/L (24-32); eGFR 77 ML/MIN
[2021-02-06 05:03] LABS: BASOPHILS # (AUTO) 0.1 X10'3 (0-0.2); BASOPHILS % (AUTO) 0.7 % (0-1); EOSINOPHILS # (AUTO) 0.3 X10'3 (0-0.9); EOSINOPHILS % (AUTO) 2.5 % (0-6); HEMATOCRIT 44.4 % (42.0-52.0); LYMPHOCYTES # (AUTO) 4.3 X10'3 (1.1-4.8); LYMPHOCYTES % (AUTO) 43.1 % (21-51); MEAN CORPUSCULAR HEMOGLOBIN 31.5 PG (27.0-31.0); MEAN CORPUSCULAR HGB CONC 33.7 g/dL (33.0-36.5); MEAN CORPUSCULAR VOLUME 93.6 FL (78-98); MEAN PLATELET VOLUME 10.7 FL (7.4-10.4); MONOCYTES % (AUTO) 10.1 % (2-12); NEUTROPHILS # (AUTO) 4.3 X10'3 (1.8-7.7); NEUTROPHILS % (AUTO) 43.6 % (42-75); PLATELET COUNT 144 X10'3 (140-440); RED BLOOD COUNT 4.74 X10'6 (4.70-6.10); RED CELL DISTRIBUTION WIDTH 13.9 % (11.5-14.5); WHITE BLOOD COUNT 9.9 X10'3 (4.5-11.0)
[2021-02-06] MEDS: diatr meglu/diatrizoate 30ml oral sol.-(3 dose) bottle PO SCH ×3 (05:15→06:10)
[2021-02-06] MEDS ORDERED: normal saline 1000ML IV soln IVB ONE (05:15)
--- NOTE | 2021-02-06 05:40 | NUR ---
PATIENT STATES THAT HE HAD A CT SCAN LAST WEEK AND HAD TO DRINK GASTROGRAFIN AND HAVE IV CONTRAST. DR. Llanes INFORMED AND CHANGED ORDERS. IV INFUSING WELL. AWAITING LAB RESULTS.
[2021-02-06 06:29] VITALS: BP 144/82
== END 2021-02-06 07:25 | disposition home or self-care (01) ==
LOC: ER 03:48
DX: K59.00 Constipation, unspecified (principal); I11.9 Hypertensive heart disease without heart failure; J45.909 Unspecified asthma, uncomplicated; K21.9 Gastro-esophageal reflux disease without esophagitis
CPT/HCPCS: 74019; 80053; 83690; 85025; 96360; 99284; J7030; Q9963

== ENCOUNTER 2021-09-08 03:30 | Emergency (ER) | payer MEDICARE, OTHER ==
[~2021-09-08] VITALS: Ht 177.8 cm; Wt 136.4 kg
[2021-09-08] MEDS ORDERED: naproxen 500mg tablet PO ONE (03:50)
[2021-09-08 05:52] VITALS: BP 143/97
== END 2021-09-08 06:05 | disposition home or self-care (01) ==
LOC: ER 03:31
DX: S52.572A Other intraarticular fracture of lower end of left radius, initial encounter for closed fracture (principal); M25.562 Pain in left knee; M25.552 Pain in left hip; M54.50 Low back pain, unspecified; M25.532 Pain in left wrist; I25.10 Atherosclerotic heart disease of native coronary artery without angina pectoris; E78.00 Pure hypercholesterolemia, unspecified; I10 Essential (primary) hypertension; I25.2 Old myocardial infarction; J45.909 Unspecified asthma, uncomplicated; K21.9 Gastro-esophageal reflux disease without esophagitis; M19.90 Unspecified osteoarthritis, unspecified site; G89.29 Other chronic pain; Z98.890 Other specified postprocedural states; Z60.2 Problems related to living alone; Z88.1 Allergy status to other antibiotic agents; Z88.8 Allergy status to other drugs, medicaments and biological substances; Z79.82 Long term (current) use of aspirin; Z79.899 Other long term (current) drug therapy; W01.0XXA Fall on same level from slipping, tripping and stumbling without subsequent striking against object, initial encounter; Y93.89 Activity, other specified; Y92.89 Other specified places as the place of occurrence of the external cause; Y99.8 Other external cause status
CPT/HCPCS: 29125; 72100; 72170; 73110; 99284

== ENCOUNTER 2022-02-16 08:08 | Inpatient (IN) | payer MEDICARE, OTHER ==
[2022-02-14 11:08] LABS: BASOPHILS % (AUTO) 0.5 % (0-1); EOSINOPHILS # (AUTO) 0.2 X10'3 (0-0.9); EOSINOPHILS % (AUTO) 2.3 % (0-6); LYMPHOCYTES # (AUTO) 3.4 X10'3 (1.1-4.8); LYMPHOCYTES % (AUTO) 39.4 % (21-51); MEAN CORPUSCULAR HEMOGLOBIN 30.7 PG (27.0-31.0); MEAN PLATELET VOLUME 10.3 FL (7.4-10.4); MONOCYTES # (AUTO) 0.7 X10'3 (0-0.9); MONOCYTES % (AUTO) 7.9 % (2-12); NEUTROPHILS # (AUTO) 4.4 X10'3 (1.8-7.7); NEUTROPHILS % (AUTO) 49.9 % (42-75); PRE OP HEMATOCRIT 43.9 % (42.0-52.0); PRE OP HEMOGLOBIN 14.5 g/dL (14.0-17.9); PRE OP PLATELET COUNT 163 X10'3 (140-440); RED BLOOD COUNT 4.72 X10'6 (4.70-6.10); RED CELL DISTRIBUTION WIDTH 14.1 % (11.5-14.5)
[2022-02-14 11:24] LABS: ALBUMIN 3.5 G/DL (3.4-5.0); ALBUMIN/GLOBULIN RATIO 0.9 (1.1-1.5); ALKALINE PHOSPHATASE 70 IU/L (46-116); BLOOD UREA NITROGEN 18 MG/DL (7-18); BUN/CREATININE RATIO 20.7 (5.4-32.0); CALCIUM 8.5 MG/DL (8.5-10.1); CHLORIDE 105 MMOL/L (99-107); CREATININE 0.87 MG/DL (0.60-1.10); PRE OP ALT 32 U/L (30-65); PRE OP ANION GAP 7 (8-16); PRE OP AST 30 U/L (10-37); PRE OP GLUCOSE 102 MG/DL (70-104); PRE OP POTASSIUM 4.1 MMOL/L (3.4-5.1); PRE OP SODIUM 140 MMOL/L (135-145); TOTAL CARBON DIOXIDE 27.7 MMOL/L (24-32); TOTAL PROTEIN 7.3 G/DL (6.4-8.2); eGFR 87 ML/MIN
[~2022-02-16] VITALS: Ht 179.1 cm; Wt 147.0 kg
[2022-02-16] VITALS (18 sets, daily range): BP systolic 104–141; BP diastolic 55–90
[~2022-02-16 08:08] MED LIST changes: -ATOR10TA PO; +ATOR20TA66 PO; +BRIM5DRO16 LEFTEYE; +CHOL400T57 PO; -CHRO1TAB8 PO; +FEXO180T94 PO; -GARLIC; +LOSA1TAB36 PO; -MAGN500C16 PO; +MAGN500C4 PO; -MULT-1085 PO; +NEPA3DRO LEFTEYE; +OMEG10006 PO; +VITA-129 PO; +[UNRECOGNIZED DRUG - OTHER] PO; +albuterol 2.5 MG/3 ML nebule NEB ONE; +ceFAZolin inj. 3,000 MG in normal saline 100ml IV soln 100 ML IV ONE; +famotidine 20mg tablet PO ONE; +ringers solution, lacted 1,000 ML IV SCH; +tranexamic acid inj. 1,000 MG in 0.7% saline 100 ML PMX IV ONE; +vancomycin 1,500 MG in NS 300ml IV soln IV ONE
--- NOTE | 2022-02-16 09:00 | NUR ---
TOTAL JOINT CHARTING: COMPLETED 5 DAYS OF DECOLONIZATION PROCESS (HIBICLENS SHOWERS AND NASAL OINTMENT). DID NOT WATCH THE VIDEO-STATES HAS BILAT THR AND DIDN'T FEEL HE NEEDED TO WATCH IT. [facility]SM'S WNL. PALPABLE +1 LEFT DORSAL PEDALIS PULSE MARKED.
[2022-02-16] MEDS ORDERED: vancomycin 1,000mg inj ONE (10:41)
[2022-02-16] MEDS ORDERED: ketorolac trometh. 30mg/ml inj. ONE (10:41)
[2022-02-16] MEDS ORDERED: morphine 10mg/ml inj. ONE (10:42)
[2022-02-16] MEDS ORDERED: epiNEPHrine 1 mg/ml inj ONE (10:42)
[2022-02-16] MEDS ORDERED: ROPIVAcaine 0.5% (5mg/ml) 30ml vial ONE ×2 (10:43→13:08)
[2022-02-16] MEDS ORDERED: fentaNYL/PF 50MCG/1 ML 2ML syringe ONE (11:45)
[2022-02-16] MEDS ORDERED: MIDAZolam 1 MG/ML 5ML VIAL ONE (11:46)
[2022-02-16] MEDS ORDERED: tetracaine 1% (10mg/ml) pres. free inj. ONE (11:47)
[2022-02-16] MEDS ORDERED: diphenhydrAMINE 50 mg/ml inj ONE (11:50)
[2022-02-16] MEDS ORDERED: ROPIVAcaine 0.2% (10 MG/5 ML) BOLUS INJECTION ADDCANAL PRN (13:10)
[2022-02-16] MEDS: ROPIVAcaine 0.2%/PF PUMP/bolus 545 ML ADDCANAL SCH (13:10)
[2022-02-16] MEDS ORDERED: proCHLORperazine 10 MG/2 ml inj IV PRN (13:10)
[2022-02-16] MEDS ORDERED: morphine 4 MG/ML inj SYRINge IV PRN (13:10)
[2022-02-16] MEDS ORDERED: ondansetron/PF 4mg/2ml inj IV PRN ×2 (13:10→15:05)
[2022-02-16] MEDS ORDERED: meperidine/PF 25mg/ml syringe IV PRN ×3 (13:10)
[2022-02-16] MEDS ORDERED: morphine 2 MG/ML inj. syringe IV PRN (13:10)
[2022-02-16] MEDS ORDERED: ringers solution, lacted 1,000 ML IV SCH (13:10)
[2022-02-16] MEDS ORDERED: ketamine 50mg/5ml syringe ONE (14:03)
[2022-02-16] MEDS ORDERED: LIDOcaine 1%/PF 5ML 10 MG/ML VIAL ONE (14:33)
[2022-02-16] MEDS ORDERED: acetaminophen 1,000mg/100ml IV 100 ML IV ONE (14:33)
[2022-02-16] MEDS ORDERED: propofol inj 20 ML IV ONE (14:33)
[2022-02-16] MEDS ORDERED: naloxone 0.4 mg/ml inj IV PRN (15:05)
[2022-02-16] MEDS ORDERED: diphenhydrAMINE 25mg capsule PO PRN ×2 (15:05)
[2022-02-16] MEDS ORDERED: oxyCODONE IR 5mg (immed. release) tablet PO PRN (15:05)
[2022-02-16] MEDS ORDERED: magnesium hydroxide 30ml (MOM) UD suspension PO PRN (15:05)
[2022-02-16] MEDS ORDERED: HYDROmorphone inj. 0.5 MG/0.5 ML DISP.SYRIN IV PRN (15:05)
[2022-02-16] MEDS ORDERED: HYDROmorphone 1 mg/ml syringe IV PRN (15:05)
[2022-02-16] MEDS ORDERED: acetaminophen 325mg tablet PO PRN (15:05)
[2022-02-16] MEDS ORDERED: bisacodyl 10mg suppository rectal RC PRN (15:05)
--- NOTE | 2022-02-16 15:15 | NUR ---
Received from OR via [facility] , accompanied by Anesthesiologist DR MADRIGAL and report given by Anesthesiolgist. PT IS AWAKE AND ANSWERING QUESTIONS APPROPRIATELY. PT PLACED ON BEDSIDE MONITOR, VSS. PT ON RA AND TOLERATING WELL, O2 SAT >93%. PT HAS 20G PIV TO LEFT WRIST WITH LR INFUSING ORDERED. LT KNEE WITH FULL LEG BRACE. ICE IN PLACE WELL GIL WRAP INTACT. ALL DRSGS ARE CDI. PT HAS STRONG PALPABLE PULSES TO BIALTERAL DORSALIS PEDIS, PT IS UNABLE TO WIGGLE TOES AT THIS TIME, STATES NUMBNESS. PT IS ABLE TO FEEL TO DERMATOME LEVEL L3. ONQ DEVISE HAS BEEN BROUGHT UP FROM PHARMACY AND WILL CONNECT TO PT. PT DENIES PAIN AT THIS TIME. WILL CONTINUE TO ASSESS.
--- NOTE | 2022-02-16 16:23 | NUR ---
Received report from CATRINA [place]
--- NOTE | 2022-02-16 16:30 | NUR ---
PATIENT TAKEN TO [facility]THO FLOOR ROOM 8149Q WITH ALL BELONGINGS AND HOOKED UP TO ALL MONITORS IN ROOM. GORGE ARE CDI. REPORT GIVEN TO JAMIE FRITZ WHO HAS TAKEN OVER PATIENT CARE.
[2022-02-16] MEDS: potassium cl 20mEq in 1/2 NS 1,000 ML IV SCH (17:51)
[2022-02-16] MEDS: ceFAZolin/D5W- 1GM premix 50 ML IV SCH ×2 (17:51→23:52)
[2022-02-16] MEDS ORDERED: tranexamic acid inj. 1,400 MG in normal saline 100ml IV soln 86 ML IV ONE (17:53)
[2022-02-16] MEDS ORDERED: albuterol 2.5 MG/3 ML nebule NEB PRN (18:00)
[2022-02-16] MEDS ORDERED: CHOL400T8 PO (18:00)
[2022-02-16] MEDS ORDERED: [UNRECOGNIZED DRUG - OTHER] PO PRN (18:00)
[2022-02-16] MEDS: oxyCODONE IR 5mg (immed. release) tablet PO PRN ×2 (18:25→22:22)
[2022-02-16] MEDS ORDERED: vancomycin/NS 1 GM ADD-VANTAGE 250 ML IV SCH (20:00)
[2022-02-16] MEDS: acetaminophen 325mg tablet PO SCH (20:35)
[2022-02-16] MEDS: gabapentin 300mg capsule PO SCH (20:35)
[2022-02-16] MEDS: sennosides 8.6mg tablet PO SCH (20:36)
[2022-02-16] MEDS: brimonidine 0.2% 5 ML ophthalmic drops LEFTEYE SCH (20:48)
[2022-02-17 02:00] VITALS: BP 110/68
[2022-02-17] MEDS: acetaminophen 325mg tablet PO SCH ×4 (02:38→20:38)
[2022-02-17] MEDS: oxyCODONE IR 5mg (immed. release) tablet PO PRN ×4 (02:38→15:59)
[2022-02-17] MEDS: potassium cl 20mEq in 1/2 NS 1,000 ML IV SCH ×4 (05:16→21:08)
--- NOTE | 2022-02-17 06:13 | NUR ---
Problems reprioritized. Patient report given, questions answered & plan of care reviewed with Kiera FRITZ.
--- NOTE | 2022-02-17 06:26 | NUR ---
Report received from CATRINA Almodovar
[2022-02-17] MEDS: levoTHYROXINE 25mcg tablet PO SCH (07:04)
[2022-02-17 07:15] VITALS: BP 117/75
[2022-02-17] MEDS: HYDROchlorothiazide 12.5mg capsule PO SCH (08:00)
[2022-02-17] MEDS: losartan 50mg tablet PO SCH (08:00)
[2022-02-17] MEDS: vitamin B comp w/Vit. C tab 1 TAB TABLET PO SCH (08:24)
[2022-02-17] MEDS: magnesium oxide 400mg tablet PO SCH (08:25)
[2022-02-17] MEDS: gabapentin 300mg capsule PO SCH ×3 (08:25→20:40)
[2022-02-17] MEDS: loratadine 10mg tablet PO SCH (08:25)
[2022-02-17] MEDS: enoxaparin 40mg/0.4ml syringe SQ SCH (08:25)
[2022-02-17] MEDS: cholecalciferol (vitamin D3) 400 unit (10mcg) tablet PO SCH (08:25)
[2022-02-17] MEDS: ketorolac tromethamine 0.5% ophthalmic drops LEFTEYE SCH (08:26)
[2022-02-17] MEDS: brimonidine 0.2% 5 ML ophthalmic drops LEFTEYE SCH ×2 (08:26→20:40)
--- NOTE | 2022-02-17 09:57 | NUR ---
Joint Surgery Consult: Pt s/p L knee surgery this admit. Pt seen by JB for written/verbal high protein diet ed w/ RD contact information provided. JB encouraged pt to contact dietitian's office if further questions/concerns. Addendum: 02/17/22 at [address] Amended: Links added.
[2022-02-17 10:00] VITALS: BP 106/55
[2022-02-17 14:00] VITALS: BP 144/60
[2022-02-17 18:00] VITALS: BP 163/75
--- NOTE | 2022-02-17 18:30 | NUR ---
Patient in room ORTHO 4015. I have received report from Kiera FRITZ and had the opportunity to ask questions and assume patient care. Addendum: 02/17/22 at 1833 by Jhoana Cordoba RN Amended: Links added.
--- NOTE | 2022-02-17 18:30 | NUR ---
report given to CATRINA [place]
--- NOTE | 2022-02-17 20:30 | NUR ---
Pt. awake A & O x 4 this shift. CMS present and pt. able to move the extremity with assist. Call light within reach and bed in low paosition. Addendum: 02/18/22 at 0702 by Jhoana Cordoba RN Amended: Links added.
[2022-02-17] MEDS: celeCOXIB 100mg capsule PO SCH (20:38)
[2022-02-17] MEDS: sennosides 8.6mg tablet PO SCH (20:39)
[2022-02-17] MEDS ORDERED: atorvastatin 20mg tablet PO SCH (21:00)
[2022-02-17 22:00] VITALS: BP 135/62
[2022-02-18 02:00] VITALS: BP 127/56
[2022-02-18] MEDS: acetaminophen 325mg tablet PO SCH ×3 (02:46→14:00)
--- NOTE | 2022-02-18 06:25 | NUR ---
Problems reprioritized. Patient report given, questions answered & plan of care reviewed with Kiera FRITZ. Addendum: 02/18/22 at 0659 by Jhoana Cordoba RN Amended: Links added.
--- NOTE | 2022-02-18 06:37 | NUR ---
received report from CATRINA kim
[2022-02-18 06:46] VITALS: BP 120/56
[2022-02-18] MEDS: levoTHYROXINE 25mcg tablet PO SCH (07:03)
[2022-02-18] MEDS: oxyCODONE IR 5mg (immed. release) tablet PO PRN ×2 (07:03→13:21)
[2022-02-18] MEDS: potassium cl 20mEq in 1/2 NS 1,000 ML IV SCH (07:05)
[2022-02-18] MEDS: HYDROchlorothiazide 12.5mg capsule PO SCH (07:43)
[2022-02-18] MEDS: losartan 50mg tablet PO SCH (07:43)
[2022-02-18] MEDS: celeCOXIB 100mg capsule PO SCH (07:47)
[2022-02-18] MEDS: loratadine 10mg tablet PO SCH (07:47)
[2022-02-18] MEDS: cholecalciferol (vitamin D3) 400 unit (10mcg) tablet PO SCH (07:47)
[2022-02-18] MEDS: vitamin B comp w/Vit. C tab 1 TAB TABLET PO SCH (07:47)
[2022-02-18] MEDS: magnesium oxide 400mg tablet PO SCH (07:47)
[2022-02-18] MEDS: enoxaparin 40mg/0.4ml syringe SQ SCH (07:47)
[2022-02-18] MEDS: gabapentin 300mg capsule PO SCH ×2 (07:47→13:21)
[2022-02-18] MEDS: brimonidine 0.2% 5 ML ophthalmic drops LEFTEYE SCH (07:48)
[2022-02-18] MEDS: ketorolac tromethamine 0.5% ophthalmic drops LEFTEYE SCH (07:48)
--- NOTE | 2022-02-18 08:00 | NUR ---
patient leg was much more edematous today, acce wrap too tight and indenting into skin so acce wrap was removed
[2022-02-18] MEDS ORDERED: magnesium hydroxide 30ml (MOM) UD suspension PO PRN (09:35)
--- NOTE | 2022-02-18 10:16 | NUR ---
sangeinous drainage noted from distal end of dressing, pressure dressing applied
[2022-02-18 10:58] VITALS: BP 122/66
--- NOTE | 2022-02-18 13:05 | NUR ---
dressing changed prior to DC
[2022-02-18] MEDS: ROPIVAcaine 0.2%/PF PUMP/bolus 545 ML ADDCANAL SCH (13:10)
--- NOTE | 2022-02-18 13:13 | NUR ---
report called to jean berg
--- NOTE | 2022-02-18 14:00 | NUR ---
patient discharged to [facility], dressing changed and report was called to jean at [facility]
[2022-02-18] MEDS ORDERED: acetaminophen 325mg tablet PO PRN (15:05)
== END 2022-02-18 14:55 | DRG 470 ==
LOC: PAS IN 08:08 → ORTHO 4S 16:40 → UNDODISIN 02-17 10:50 → ORTHO 4S 02-18 04:03
PROVIDERS: ADMIT Orthopaedic Surgery; ATTEND Orthopaedic Surgery
PROC: 0SRD0JA Replacement of Left Knee Joint with Synthetic Substitute, Uncemented, Open Approach (ICD-10-PCS; principal; 2022-02-16 11:50)
DX: M17.12 Unilateral primary osteoarthritis, left knee (principal); Z20.822 Contact with and (suspected) exposure to COVID-19
CPT/HCPCS: 36415; 73560; 80053; 82948; 85025; 87081; 87811; 94640; 94760; 97110; 97116; 97162; 97530; A4215; A4615; A6258; A6449; A7000; C1758; C1776; C9250; G0378; J0131; J0171; J0690; J1170; J1200; J1650; J1885; J2250; J2274; J2704; J2795; J3010; J3370; J3480; J3490; J7040; J7120

== ENCOUNTER 2022-05-12 12:48 | Outpatient (CLI) | payer MEDICARE, OTHER ==
[~2022-05-12 12:48] MED LIST changes: -CHOL400T57 PO; +CHOL400T8 PO; -albuterol 2.5 MG/3 ML nebule NEB ONE; -ceFAZolin inj. 3,000 MG in normal saline 100ml IV soln 100 ML IV ONE; -famotidine 20mg tablet PO ONE; -ringers solution, lacted 1,000 ML IV SCH; -tranexamic acid inj. 1,000 MG in 0.7% saline 100 ML PMX IV ONE; -vancomycin 1,500 MG in NS 300ml IV soln IV ONE
== END 2022-05-12 23:59 | disposition home or self-care (01) ==
LOC: VAS 12:48
PROVIDERS: ATTEND Orthopaedic Surgery
DX: R22.42 Localized swelling, mass and lump, left lower limb (principal)
CPT/HCPCS: 93971

== ENCOUNTER 2022-11-08 16:13 | Emergency (ER) | payer MEDICARE, OTHER ==
[~2022-11-08] VITALS: Ht 179.1 cm; Wt 145.4 kg
[~2022-11-08 16:13] MED LIST changes: -BRIM5DRO16 LEFTEYE; +BRIM5DRO6 LEFTEYE
[2022-11-08 16:32] LABS: BASOPHILS % (AUTO) 0.1 % (0-1); EOSINOPHILS % (AUTO) 0 % (0-6); HEMATOCRIT 45.8 % (42.0-52.0); HEMOGLOBIN 15.1 g/dl (14.0-17.9); LYMPHOCYTES # (AUTO) 2.1 X10'3 (1.1-4.8); LYMPHOCYTES % (AUTO) 16.2 % (21-51); MEAN CORPUSCULAR HEMOGLOBIN 30.6 PG (27.0-31.0); MEAN CORPUSCULAR HGB CONC 32.9 g/dL (33.0-36.5); MEAN CORPUSCULAR VOLUME 92.9 FL (78-98); MEAN PLATELET VOLUME 10.1 FL (7.4-10.4); MONOCYTES # (AUTO) 0.4 X10'3 (0-0.9); MONOCYTES % (AUTO) 3.4 % (2-12); NEUTROPHILS # (AUTO) 10.6 X10'3 (1.8-7.7); NEUTROPHILS % (AUTO) 80.3 % (42-75); PLATELET COUNT 135 X10'3 (140-440); RED BLOOD COUNT 4.93 X10'6 (4.70-6.10); RED CELL DISTRIBUTION WIDTH 14.3 % (11.5-14.5); WHITE BLOOD COUNT 13.2 X10'3 (4.5-11.0)
[2022-11-08 16:44] LABS: ALANINE AMINOTRANSFERASE 22 U/L (12-78); ALBUMIN 3.6 G/DL (3.4-5.0); ALBUMIN/GLOBULIN RATIO 0.9 (1.1-1.5); ALKALINE PHOSPHATASE 84 IU/L (46-116); ANION GAP 8 (8-16); ASPARTATE AMINO TRANSFERASE 16 U/L (10-37); BILIRUBIN,TOTAL 1.1 MG/DL (0.1-1.0); BLOOD UREA NITROGEN 13 MG/DL (7-18); BUN/CREATININE RATIO 13.3 (10.0-20.0); CHLORIDE 102 MMOL/L (99-107); CREATININE 0.98 MG/DL (0.60-1.10); GLUCOSE 127 MG/DL (70-104); POTASSIUM 4.3 MMOL/L (3.5-5.1); SODIUM 135 MMOL/L (135-145); TOTAL CARBON DIOXIDE 25.2 MMOL/L (24-32); TOTAL PROTEIN 7.4 G/DL (6.4-8.2); eGFR 76 ML/MIN
[2022-11-08 16:51] VITALS: BP 141/84
[2022-11-08 16:52] LABS: MAGNESIUM 1.8 MG/DL (1.5-2.4)
[2022-11-08] MEDS ORDERED: albuterol 2.5 MG/3 ML nebule NEB ONE (17:20)
[2022-11-08] MEDS ORDERED: azithromycin 250mg tablet PO ONE (17:20)
[2022-11-08] MEDS ORDERED: predniSONE 20 mg tablet PO ONE (17:20)
[2022-11-08] MEDS ORDERED: AZIT250T2 PO (17:52)
[2022-11-08] MEDS ORDERED: ALB0.5UD IH ×2 (17:52)
[2022-11-08] MEDS ORDERED: PRED10TA PO (17:52)
[2022-11-09] MEDS ORDERED: ALB0.5UD IH ×2 (14:44→14:53)
[2022-11-09] MEDS ORDERED: ALBU1.256 NEB (15:12)
== END 2022-11-08 18:22 | disposition home or self-care (01) ==
LOC: ER 16:14
DX: J44.1 Chronic obstructive pulmonary disease with (acute) exacerbation (principal); J40 Bronchitis, not specified as acute or chronic; E78.00 Pure hypercholesterolemia, unspecified; J44.9 Chronic obstructive pulmonary disease, unspecified; K21.9 Gastro-esophageal reflux disease without esophagitis; M19.90 Unspecified osteoarthritis, unspecified site; I50.9 Heart failure, unspecified; Z88.1 Allergy status to other antibiotic agents; Z91.09 Other allergy status, other than to drugs and biological substances
CPT/HCPCS: 36415; 71045; 80053; 83735; 83880; 84484; 85025; 93005; 94640; 99285; J7512; 94760

== ENCOUNTER 2023-03-15 10:14 | Day surgery (SDC) | payer MEDICARE, OTHER ==
[2023-03-07 15:14] LABS: BASOPHILS # (AUTO) 0.1 X10'3 (0-0.2); BASOPHILS % (AUTO) 0.8 % (0-1); EOSINOPHILS # (AUTO) 0.2 X10'3 (0-0.9); EOSINOPHILS % (AUTO) 2.7 % (0-6); LYMPHOCYTES # (AUTO) 4.4 X10'3 (1.1-4.8); LYMPHOCYTES % (AUTO) 47.1 % (21-51); MEAN CORPUSCULAR HGB CONC 33.1 g/dL (33.0-36.5); MEAN CORPUSCULAR VOLUME 93.5 FL (78-98); MEAN PLATELET VOLUME 10.6 FL (7.4-10.4); MONOCYTES # (AUTO) 0.6 X10'3 (0-0.9); MONOCYTES % (AUTO) 6.9 % (2-12); NEUTROPHILS % (AUTO) 42.5 % (42-75); PRE OP HEMATOCRIT 45.7 % (42.0-52.0); PRE OP HEMOGLOBIN 15.1 g/dL (14.0-17.9); PRE OP PLATELET COUNT 131 X10'3 (140-440); PRE OP WHITE BLOOD COUNT 9.3 10'3 (4.8-10.8); RED BLOOD COUNT 4.89 X10'6 (4.70-6.10); RED CELL DISTRIBUTION WIDTH 13.9 % (11.5-14.5)
[2023-03-07 15:27] LABS: ALBUMIN 3.5 G/DL (3.4-5.0); ALKALINE PHOSPHATASE 82 IU/L (46-116); BLOOD UREA NITROGEN 16 MG/DL (7-18); BUN/CREATININE RATIO 19.5 (10.0-20.0); CALCIUM 8.8 MG/DL (8.5-10.1); CHLORIDE 104 MMOL/L (99-107); CREATININE 0.82 MG/DL (0.60-1.10); PRE OP ALT 39 U/L (30-65); PRE OP ANION GAP 5 (8-16); PRE OP AST 27 U/L (10-37); PRE OP BILIRUB, TOTAL 1.6 MG/DL (0.0-1.0); PRE OP GLUCOSE 95 MG/DL (70-104); PRE OP POTASSIUM 4.2 MMOL/L (3.4-5.1); PRE OP SODIUM 139 MMOL/L (135-145); eGFR > 90 ML/MIN
[2023-03-07 16:21] LABS: PLATELET ESTIMATE DECREASED
[~2023-03-15] VITALS: Ht 177.8 cm; Wt 150.6 kg
[2023-03-15] VITALS (10 sets, daily range): BP systolic 110–125; BP diastolic 55–77; PULSE 53–66; RESP 12–17; TEMP 97.1; O2SAT 93–98
[~2023-03-15 10:14] MED LIST changes: +ASHWAGANDHA; -ASPI-611 PO; -BRIM5DRO6 LEFTEYE; -CHOL400T8 PO; +CO Q10; -FEXO180T94 PO; +GARLIC; +GINGER; -MAGN500C4 PO; +MAGNESIUM; +MILK THISTLE; +MULT-1074 PO; -NEPA3DRO LEFTEYE; -OMEG10006 PO; +THEANINE; -TUMERIC; -UBID30CA11 PO; -VITA-129 PO; +VITA-268 PO; +VITAMIN B-12; -[UNRECOGNIZED DRUG - OTHER] PO; +ceFAZolin inj. 3,000 MG in normal saline 100ml IV soln 100 ML IV ONE; +famotidine 20mg tablet PO ONE; +ringers solution, lacted 1,000 ML IV SCH
[2023-03-15] MEDS ORDERED: fentaNYL/PF 50MCG/1 ML 2ML syringe ONE ×2 (10:55→11:00)
[2023-03-15] MEDS ORDERED: midazolam 1 mg/ML 2ml injection ONE (10:55)
[2023-03-15] MEDS ORDERED: enalaprilat dihydrate 2.5mg/2ml vial IV PRN (11:05)
[2023-03-15] MEDS ORDERED: hydrALAZINE 20mg/ml inj. IV PRN (11:05)
[2023-03-15] MEDS ORDERED: ondansetron/PF 4mg/2ml inj IV PRN (11:05)
[2023-03-15] MEDS ORDERED: morphine 2 MG/ML inj. syringe IV PRN (11:05)
[2023-03-15] MEDS ORDERED: morphine 4 MG/ML inj SYRINge IV PRN (11:05)
[2023-03-15] MEDS ORDERED: ringers solution, lacted 1,000 ML IV SCH (11:05)
[2023-03-15] MEDS ORDERED: ROPIVAcaine 0.5% (5mg/ml) 30ml vial ONE (11:52)
[2023-03-15] MEDS ORDERED: LIDOcaine 0.5% (5mg/ml) 50ml vial ONE (11:52)
--- NOTE | 2023-03-15 12:07 | NUR ---
Received from OR via [facility] TO RR 8, accompanied by AneING THRU PIV sthesiologist DR JACOBO and report given by Anesthesiolgist. PT PRESENTS ON RA WITH SPO2 AT 93%. RIGHT WRIST DRESSING CDI WITH GIL BANDAGE IN PLACE, ARM ELEVATED AND ICE APPLIED. PT DOES NOT C/O PAIN OR NAUSEA. NO S/S OF DISTRESS NOTED. PT IS NEUROLOGICALLY INTACT WITH EQUAL PUSH/PULLS, TONGUE SYMMETRICAL AND MIDLINE. LR RUNNING AT 100ML/HR THRU PIV IN LEFT HAND. WILL CONTINUE TO ASSESS.
== END 2023-03-15 13:47 | disposition home or self-care (01) ==
LOC: PAS 10:14
PROVIDERS: ATTEND Orthopaedic Surgery
DX: M65.331 Trigger finger, right middle finger (principal); J45.990 Exercise induced bronchospasm; G47.30 Sleep apnea, unspecified; I10 Essential (primary) hypertension; E78.5 Hyperlipidemia, unspecified; Z95.5 Presence of coronary angioplasty implant and graft; K21.9 Gastro-esophageal reflux disease without esophagitis; M19.90 Unspecified osteoarthritis, unspecified site; E03.9 Hypothyroidism, unspecified; I25.10 Atherosclerotic heart disease of native coronary artery without angina pectoris; E66.01 Morbid (severe) obesity due to excess calories; Z68.42 Body mass index [BMI] 45.0-49.9, adult; Z85.828 Personal history of other malignant neoplasm of skin; Z79.899 Other long term (current) drug therapy; Z88.8 Allergy status to other drugs, medicaments and biological substances; Z91.048 Other nonmedicinal substance allergy status; Z96.643 Presence of artificial hip joint, bilateral; Z96.652 Presence of left artificial knee joint; Z98.890 Other specified postprocedural states
CPT/HCPCS: 26055; 36415; 80053; 82948; 85025; J0690; J2250; J2795; J3010; J3490; J7030; J7120; Z7506; Z7512; 85008; A4215; A6449

== ENCOUNTER 2023-06-09 14:59 | Emergency (ER) | payer MEDICARE, OTHER ==
[~2023-06-09] VITALS: Ht 177.8 cm; Wt 146.1 kg
[~2023-06-09 14:59] MED LIST changes: -ceFAZolin inj. 3,000 MG in normal saline 100ml IV soln 100 ML IV ONE; -famotidine 20mg tablet PO ONE; -ringers solution, lacted 1,000 ML IV SCH
[2023-06-09 18:43] VITALS: BP 157/92; PULSE 99; RESP 16; O2SAT 97
[2023-06-09] MEDS ORDERED: acetaminophen 325mg tablet PO ONE (18:45)
[2023-06-09] MEDS ORDERED: NIRM1TAB PO (19:10)
[2023-06-09 19:14] VITALS: TEMP 99.6
== END 2023-06-09 19:17 | disposition home or self-care (01) ==
LOC: ER 15:00
DX: U07.1 COVID-19 (principal)
CPT/HCPCS: 36415; 87502; 87503; 87811; 99283

== ENCOUNTER 2024-06-26 06:35 | Inpatient (IN) | payer MEDICARE, OTHER ==
[2024-06-19 14:38] LABS: BASOPHILS % (AUTO) 0.8 % (0-1); EOSINOPHILS # (AUTO) 0.1 X10'3 (0-0.9); EOSINOPHILS % (AUTO) 2.1 % (0-6); LYMPHOCYTES # (AUTO) 3.4 X10'3 (1.1-4.8); LYMPHOCYTES % (AUTO) 55.8 % (21-51); MEAN CORPUSCULAR HEMOGLOBIN 31.4 PG (27.0-31.0); MEAN CORPUSCULAR HGB CONC 34.3 g/dL (33.0-36.5); MEAN CORPUSCULAR VOLUME 91.6 FL (78-98); MEAN PLATELET VOLUME 10.5 FL (7.4-10.4); MONOCYTES # (AUTO) 0.4 X10'3 (0-0.9); MONOCYTES % (AUTO) 6.8 % (2-12); NEUTROPHILS # (AUTO) 2.1 X10'3 (1.8-7.7); NEUTROPHILS % (AUTO) 34.5 % (42-75); PRE OP HEMATOCRIT 45.5 % (42.0-52.0); PRE OP HEMOGLOBIN 15.6 g/dL (14.0-17.9); PRE OP PLATELET COUNT 122 X10'3 (140-440); PRE OP WHITE BLOOD COUNT 6.1 10'3 (4.8-10.8); RED BLOOD COUNT 4.97 X10'6 (4.70-6.10); RED CELL DISTRIBUTION WIDTH 13.9 % (11.5-14.5)
[2024-06-19 14:48] LABS: ALBUMIN 3.5 G/DL (3.4-5.0); ALBUMIN/GLOBULIN RATIO 0.9 (1.1-1.5); ALKALINE PHOSPHATASE 71 IU/L (46-116); BLOOD UREA NITROGEN 15 MG/DL (7-18); BUN/CREATININE RATIO 16.5 (10.0-20.0); CALCIUM 8.7 MG/DL (8.5-10.1); CHLORIDE 103 MMOL/L (99-107); CREATININE 0.91 MG/DL (0.60-1.10); PRE OP ALT 25 U/L (30-65); PRE OP ANION GAP 8 (8-16); PRE OP AST 19 U/L (10-37); PRE OP BILIRUB, TOTAL 0.7 MG/DL (0.0-1.0); PRE OP GLUCOSE 99 MG/DL (70-104); PRE OP POTASSIUM 4.5 MMOL/L (3.4-5.1); PRE OP SODIUM 140 MMOL/L (135-145); THYROID STIMULATING HORMONE 2.67 ulU/ml (0.34-4.50); TOTAL CARBON DIOXIDE 28.9 MMOL/L (24-32); TOTAL PROTEIN 7.3 G/DL (6.4-8.2); eGFR 82 ML/MIN
[2024-06-19 14:57] LABS: TOTAL CELLS COUNTED 100
[2024-06-19 14:58] LABS: PLATELET ESTIMATE DECREASED
[~2024-06-26] VITALS: Ht 177.8 cm; Wt 140.6 kg
[2024-06-26] VITALS (29 sets, daily range): BP systolic 92–149; BP diastolic 48–92; PULSE 57–82; RESP 12–22; TEMP 97.8–98.2; O2SAT 93–99
[2024-06-26] MEDS: Cefazolin 3 GM/100ML NS IVPB 100 ML IV ONE (05:30)
[~2024-06-26 06:35] MED LIST changes: -ASHWAGANDHA; +ASPI81TA52 PO; -ATOR20TA66 PO; +DRY EYE DROPS; -GARLIC; -GINGER; -MAGNESIUM; -MILK THISTLE; -MULT-1074 PO; +OMEGA 3; +ROSU20TA98 PO; -THEANINE; -VITA-268 PO; +ZINC
[2024-06-26] MEDS ORDERED: vancomycin 1,000mg inj ONE (06:56)
[2024-06-26] MEDS: tranexamic acid 1gm/0.7% sal. 100 ML IV ONE (07:25)
[2024-06-26] MEDS: ringers solution, lacted 1,000 ML IV SCH ×2 (07:26→14:58)
[2024-06-26] MEDS: famotidine 20mg tablet PO ONE (07:26)
[2024-06-26] MEDS: VANCOMYCIN 1,500MG inj. 1,500 MG in normal saline 500ml IV soln 300 ML IV ONE (07:26)
[2024-06-26] MEDS: MORPHINE IU ONE (07:55)
[2024-06-26] MEDS: EPINEPHRINE IU ONE (07:55)
[2024-06-26] MEDS: ROPIVACAINE IU ONE (07:55)
[2024-06-26] MEDS: [UNRECOGNIZED DRUG - OTHER] IU ONE (07:55)
[2024-06-26] MEDS ORDERED: PHENYLephrine 10mg/ml 5ml injection IV ONE (08:12)
[2024-06-26] MEDS ORDERED: BUPIVAcaine 0.5% inj/PF 30 ML ONE (08:15)
[2024-06-26] MEDS ORDERED: tetracaine 1% (10mg/ml) pres. free inj. ONE (08:15)
[2024-06-26] MEDS ORDERED: BUPIVACAINE liposomal/PF 13.3 MG/ML vial IM ONE (08:15)
[2024-06-26] MEDS ORDERED: fentaNYL/PF 50MCG/1 ML 2ML syringe ONE (08:19)
[2024-06-26] MEDS ORDERED: MIDAZolam 1mg/ml 10ml vial ONE ×2 (08:19→08:32)
[2024-06-26] MEDS ORDERED: fentaNYL/PF 50MCG/1 ML 2ML syringe IV PRN (09:05)
[2024-06-26] MEDS ORDERED: morphine 4 MG/ML inj SYRINge IV PRN (09:05)
[2024-06-26] MEDS ORDERED: labetalol 20mg/4ml (5mg/ml) syringe IV PRN (09:05)
[2024-06-26] MEDS ORDERED: hydrALAZINE 20mg/ml inj. IV PRN (09:05)
[2024-06-26] MEDS ORDERED: morphine 2 MG/ML inj. syringe IV PRN (09:05)
[2024-06-26] MEDS ORDERED: LIDOcaine 2% (20mg/ml) 5ml vial ONE (09:06)
[2024-06-26] MEDS ORDERED: propofol inj 20 ML IV ONE ×2 (09:06)
[2024-06-26] MEDS ORDERED: naloxone 0.4 mg/ml inj IV PRN (11:45)
[2024-06-26] MEDS ORDERED: bisacodyl 10mg suppository rectal RC PRN (11:45)
[2024-06-26] MEDS ORDERED: tranexamic acid inj. 1,400 MG in normal saline 100ml IV soln 100 ML IV ONE (11:45)
[2024-06-26] MEDS ORDERED: ondansetron/PF 4mg/2ml inj IV PRN (11:45)
[2024-06-26] MEDS ORDERED: diphenhydrAMINE 25mg capsule PO PRN (11:45)
[2024-06-26] MEDS ORDERED: HYDROmorphone inj. 0.5 MG/0.5 ML DISP.SYRIN IV PRN (11:45)
[2024-06-26] MEDS ORDERED: acetaminophen 325mg tablet PO PRN (11:45)
[2024-06-26] MEDS ORDERED: magnesium hydroxide 30ml (MOM) UD suspension PO PRN (11:45)
[2024-06-26] MEDS: tranexamic acid inj. 1,400 MG in normal saline 100ml IV soln 86 ML IV ONE (14:53)
[2024-06-26] MEDS: gabapentin 300mg capsule PO SCH (14:54)
[2024-06-26] MEDS: fentaNYL/PF 50MCG/1 ML 2ML syringe IV PRN (15:52)
[2024-06-26] MEDS: ondansetron/PF 4mg/2ml inj IV PRN (16:31)
[2024-06-26] MEDS: HYDROmorphone 1 mg/ml syringe IV PRN (17:46)
[2024-06-26] MEDS ORDERED: albuterol 2.5 MG/3 ML nebule NEB PRN (18:45)
[2024-06-26] MEDS: oxyCODONE IR 5mg (immed. release) tablet PO PRN (18:58)
[2024-06-26] MEDS: sennosides 8.6mg tablet PO SCH (21:00)
[2024-06-26] MEDS: losartan 50mg tablet PO SCH (21:24)
[2024-06-26] MEDS: HYDROchlorothiazide 12.5mg capsule PO SCH (21:25)
[2024-06-26] MEDS: atorvastatin 20mg tablet PO SCH (21:27)
[2024-06-26] MEDS: VANCOMYCIN 1GM 200ML H20 (PEG) 200 ML IV SCH (21:31)
[2024-06-26] MEDS: diphenhydrAMINE 25mg capsule PO PRN (22:46)
[2024-06-27] VITALS (8 sets, daily range): BP systolic 117–147; BP diastolic 53–73; PULSE 73–93; RESP 14–20; TEMP 97.5–98.7; O2SAT 91–96
[2024-06-27] MEDS: enoxaparin 40mg/0.4ml syringe SQ SCH (08:00)
[2024-06-27] MEDS: levoTHYROXINE 25mcg tablet PO SCH (08:10)
[2024-06-27 08:40] LABS: BASOPHILS % (AUTO) 0.2 % (0-1); EOSINOPHILS # (AUTO) 0.1 X10'3 (0-0.9); EOSINOPHILS % (AUTO) 0.8 % (0-6); HEMATOCRIT 41.4 % (42.0-52.0); LYMPHOCYTES # (AUTO) 3.6 X10'3 (1.1-4.8); LYMPHOCYTES % (AUTO) 28.2 % (21-51); MEAN CORPUSCULAR HEMOGLOBIN 31.2 PG (27.0-31.0); MEAN CORPUSCULAR HGB CONC 33.8 g/dL (33.0-36.5); MEAN CORPUSCULAR VOLUME 92.5 FL (78-98); MEAN PLATELET VOLUME 10.5 FL (7.4-10.4); MONOCYTES # (AUTO) 1.7 X10'3 (0-0.9); MONOCYTES % (AUTO) 13.2 % (2-12); NEUTROPHILS # (AUTO) 7.3 X10'3 (1.8-7.7); NEUTROPHILS % (AUTO) 57.6 % (42-75); PLATELET COUNT 144 X10'3 (140-440); RED BLOOD COUNT 4.47 X10'6 (4.70-6.10); RED CELL DISTRIBUTION WIDTH 13.9 % (11.5-14.5); WHITE BLOOD COUNT 12.6 X10'3 (4.5-11.0)
[2024-06-27] MEDS: celeCOXIB 100mg capsule PO SCH (19:34)
[2024-06-27] MEDS: oxyCODONE IR 5mg (immed. release) tablet PO PRN (19:34)
[2024-06-27] MEDS: hydrocortisone 1% OINTMENT 30gm tube TP SCH (19:34)
[2024-06-27] MEDS: ROSUVASTATIN 20 MG PO SCH (19:36)
[2024-06-28 06:00] VITALS: BP 125/67; PULSE 75; RESP 15; TEMP 98.6; O2SAT 93
[2024-06-28 10:00] VITALS: BP 102/59; PULSE 84; RESP 16; TEMP 98.1; O2SAT 92
[2024-06-28] MEDS ORDERED: acetaminophen 325mg tablet PO PRN (11:45)
[2024-06-28 18:00] VITALS: BP 118/55; PULSE 79; RESP 16; TEMP 97.4; O2SAT 93
[2024-06-28 22:00] VITALS: BP 121/57; PULSE 87; RESP 18; TEMP 97.9; O2SAT 94
[2024-06-28 23:28] VITALS: PULSE 84; RESP 16; O2SAT 93
[2024-06-29 04:21] VITALS: O2SAT 95
[2024-06-29 06:00] VITALS: BP 112/58; PULSE 66; RESP 16; TEMP 97.8; O2SAT 94
[2024-06-29 07:00] VITALS: RESP 16; O2SAT 94
[2024-06-29 10:00] VITALS: BP 115/58; PULSE 77; RESP 16; TEMP 98.4; O2SAT 96
== END 2024-06-29 12:00 | DRG 470 ==
LOC: PAS IN 06:35 → OR 06:35 → UNDOADMIN 06:35 → ORTHO 4S 06:36 → EDSTATUS 08:30 → ORTHO 4S 17:01 → PAS IN 17:01 → OR 17:01
PROVIDERS: ADMIT Orthopaedic Surgery; ATTEND Orthopaedic Surgery
PROC: 3E0T3BZ Introduction of Anesthetic Agent into Peripheral Nerves and Plexi, Percutaneous Approach (ICD-10-PCS; 2024-06-26)
PROC: 5A09357 Assistance with Respiratory Ventilation, Less than 24 Consecutive Hours, Continuous Positive Airway Pressure (ICD-10-PCS; 2024-06-26)
PROC: 0SRC0JA Replacement of Right Knee Joint with Synthetic Substitute, Uncemented, Open Approach (ICD-10-PCS; principal; 2024-06-26 08:12)
PROC: 5A09357 Assistance with Respiratory Ventilation, Less than 24 Consecutive Hours, Continuous Positive Airway Pressure (ICD-10-PCS; 2024-06-27)
PROC: 5A09357 Assistance with Respiratory Ventilation, Less than 24 Consecutive Hours, Continuous Positive Airway Pressure (ICD-10-PCS; 2024-06-28)
PROC: 5A09357 Assistance with Respiratory Ventilation, Less than 24 Consecutive Hours, Continuous Positive Airway Pressure (ICD-10-PCS; 2024-06-29)
DX: M17.11 Unilateral primary osteoarthritis, right knee (principal); Z68.41 Body mass index [BMI] 40.0-44.9, adult; G47.33 Obstructive sleep apnea (adult) (pediatric); E78.5 Hyperlipidemia, unspecified; E66.01 Morbid (severe) obesity due to excess calories; I10 Essential (primary) hypertension; I25.10 Atherosclerotic heart disease of native coronary artery without angina pectoris; K21.9 Gastro-esophageal reflux disease without esophagitis; Z96.643 Presence of artificial hip joint, bilateral; Z85.6 Personal history of leukemia; Z88.8 Allergy status to other drugs, medicaments and biological substances; Z79.82 Long term (current) use of aspirin; Z79.899 Other long term (current) drug therapy; Z95.5 Presence of coronary angioplasty implant and graft
CPT/HCPCS: 36415; 73560; 80053; 82948; 84443; 85007; 85025; 87081; 94760; 97110; 97116; 97161; 97530; A4215; A4314; A4615; A6253; A6258; A6446; A6449; A6454; A7000; C1713; C1776; C9250; C9290; G0378; J0171; J0690; J1100; J1171; J1650; J2003; J2250; J2274; J2371; J2405; J2704; J2795; J3010; J3370; J3372; J3490; J7040; J7120; Q0163